=== PATIENT | female | born 1995 | race Two or more races ===

== ENCOUNTER 2025-11-25 10:13 | Outpatient (CLI) | payer OTHER, SELFPAY ==
--- NOTE | ~2025-11-25 | US_ITS ---
EXAMINATION: US OB /maternal detail DATE: 11/25/2025 11:27 INDICATION: Encounter for screening TECHNIQUE: Multiple obstetric sonographic images performed. FINDINGS: There is a single living fetus in vertex presentation. The placenta is posterior fundal and not low-lying with caudal margin 9 cm from the internal cervical os cervical length measures approximately 3.3 similar however assessment is limited on the transabdominal imaging. Cannot exclude volume is subjectively normal. heart rate of 138 beats per minute. The following anatomy was identified as normal: Ventricles, choroid plexus, falx and cava septum pellucidum Cerebellum and cisterna magna Nuchal fold Upper lip Spine Four-chamber heart and left ventricular outflow tract. Right ventricular outflow tract view is nondiagnostic. Diaphragm Stomach Kidneys Bladder 3 vessel cord and cord insertion Bilateral upper and lower extremities including hands and feet The following biometric data were obtained: BPD: 5.2 cm -> 21 weeks 5 days Head circumference: 17.9 cm -> 20 weeks 3 days Abdominal circumference: 14.7 cm -> 20 weeks 0 days Femur length: 3.1 cm -> 19 weeks 5 days These measurements are concordant. Head circumference to abdominal circumference ratio: 1.22 (normal range 1.07-1.25). Estimated weight: 325 g (+/-) 49 g. or 11 oz. (+/-) 2 oz. IMPRESSION: 1. Single living fetus with vertex presentation with heart rate of 138 bpm. 2. Gestational age by ultrasound of 20 weeks 3 day(s) (+/-) 1 week 3 day(s) with ultrasound estimated date of delivery (THOM) of 04/11/2026. Estimated weight is 23rd percentile by Hadlock criteria when 04/11/2026 is used as the THOM. Please correlate with clinical information or earlier ultrasounds for most accurate THOM. 3. Normal survey aside from nondiagnostic right ventricular outflow tract view. Reviewed, dictated and finalized at location A. [facility] IMPRESSION: 1. Single living fetus with vertex presentation with heart rate of 138 b pm. 2. Gestational age by ultrasound of 20 weeks 3 day(s) (+/-) 1 week 3 day(s) w ith ultrasound estimated date of delivery (THOM) of 04/11/2026. Estimated w eight is 23rd percentile by Hadlock criteria when 04/11/2026 is used as the THOM. Please correlate with clinical information or earlier ultrasounds for most acc urate THOM. 3. Normal survey aside from nondiagnostic right ventricular outflow tract view.
== END 2025-11-25 10:14 | disposition home or self-care (01) ==
PROVIDERS: PCP Obstetrics & Gynecology; Visit Provider Obstetrics & Gynecology
DX: Z36.9 Encounter for antenatal screening, unspecified (principal); Z3A.00 Weeks of gestation of pregnancy not specified
CPT/HCPCS: 76805